=== PATIENT | male | born 1990 | race Caucasian/White ===

== ENCOUNTER 2020-11-26 12:19 | Emergency (ER) | payer MEDICAID ==
[~2020-11-26] VITALS: Ht 182.9 cm; Wt 70.8 kg
[2020-11-26 12:56] VITALS: BP 127/65
[2020-11-26] MEDS ORDERED: triamcinolone acetonide 40mg/ml inj IM ONE (15:00)
[2020-11-26] MEDS ORDERED: ketorolac tromethamine 15mg/ml inj. IM ONE (15:00)
[2020-11-26] MEDS ORDERED: METH4TAB81 PO (15:39)
[2020-11-26] MEDS ORDERED: IBUP-1984 PO (15:39)
[2020-11-26] MEDS ORDERED: CYCL-1 PO (15:39)
== END 2020-11-26 15:58 | disposition home or self-care (01) ==
LOC: ER 12:19
DX: M54.5 Low back pain (principal); G89.29 Other chronic pain; Z88.0 Allergy status to penicillin
CPT/HCPCS: 72100; 96372; 99284; J1885; J3301